=== PATIENT | female | born 1960 | race Caucasian/White ===

== ENCOUNTER 2018-11-06 07:40 | Outpatient (CLI) | payer OTHER ==
--- NOTE | 2018-11-06 09:07 | CT ---
CT ABDOMEN WITH AND WITHOUT IV CONTRAST: CT PELVIS WITH AND WITHOUT IV CONTRAST: 11/06/2018 HISTORY: Other specified disorders of kidneys and ureters. Renal lesion identified on MRI examination. COMPARISON: MRI lumbar spine obtained at the [facility] on 06/18/2018. FINDINGS: There is a heterogeneously enhancing mass involving the anterolateral aspect of the mid portion right kidney, measuring 2.1 cm, which corresponds to the finding on prior MRI and is suspicious for renal cell carcinoma. A subcentimeter, [id number]-characterize, hypodense lesion is seen in the mid portion of the right kidney. The left kidney has a normal CT appearance. A calcified granuloma is seen at the right lung base. There is minimal atelectasis in the region of the lingula. The lung bases are otherwise clear. The liver, spleen, pancreas, bilateral adrenal glands, and urinary bladder demonstrate a normal CT ap pearance. Vascular calcifications are seen in the abdominal aorta and involving the iliac arteries with promine nt atherosclerotic plaque in the most distal infrarenal abdominal aorta and involving the right commo n iliac artery. There is questionable critical stenosis versus occlusion of the right common iliac a rtery. The uterus is not visualized, likely related to prior hysterectomy. The appendix is visualized and normal in caliber. No free fluid, fluid collection, or lymphadenopathy is seen in the abdomen or pelvis. IMPRESSION: 1. Heterogeneously enhancing right renal mass. Renal cell carcinoma is the diagnosis of exclusion. 2. Atherosclerotic vascular calcifications and plaque involving the abdominal aorta and involving th e iliac arteries. There is suggestion of either a critical stenosis versus short segment occlusion o f the right common iliac artery. This examination was obtained primarily in the portal venous phase of imaging, on the post contrasted images, and is unable to be further evaluated. 3. Additional findings as described above. CODE T POS: KETAN
[2018-11-06] MEDS ORDERED: ISOVUE-370 76%-LOCM 1 ML ONE (17:00)
== END 2018-11-06 07:41 | disposition home or self-care (01) ==
LOC: BICCT 07:40
PROVIDERS: ATTEND Urology
DX: N28.89 Other specified disorders of kidney and ureter (principal); I70.0 Atherosclerosis of aorta; I70.8 Atherosclerosis of other arteries; J84.10 Pulmonary fibrosis, unspecified; J98.11 Atelectasis
CPT/HCPCS: 74178

== ENCOUNTER 2021-01-04 11:12 | Outpatient (CLI) | payer BC | END 2021-01-04 11:13 | disposition home or self-care (01) | LOC: BICRAD 11:12 | PROVIDERS: ATTEND Nurse Practitioner Family | DX: M54.5 Low back pain (principal); M54.2 Cervicalgia; M47.812 Spondylosis without myelopathy or radiculopathy, cervical region | CPT/HCPCS: 72050; 72070; 72110 ==